=== PATIENT | female | born 2000 | race Caucasian/White ===

== ENCOUNTER 2024-09-01 16:10 | Outpatient (CLI) | payer OTHER, SELFPAY | END 2024-09-01 16:11 | disposition home or self-care (01) | LOC: NFLDREF 09-06 08:32 | PROVIDERS: Referring Provider Family Medicine; Visit Provider Registered Nurse | DX: R30.0 Dysuria (principal); N89.8 Other specified noninflammatory disorders of vagina | CPT/HCPCS: 87086 ==